=== PATIENT | female | born 1980 | race Caucasian/White ===

== ENCOUNTER 2016-10-26 11:40 | Emergency (ER) | payer OTHER ==
--- NOTE | 2016-10-26 12:07 | ERNOTE ---
Integumentary HPI - General Time Seen by Provider: 10/26/16 11:58 Source: patient Exam Limitations: no limitations - Immun/Allergies/Home Medications Immunizations: IMMUNIZATION HX Immunizations Up to Date Yes Allergies/Adverse Reactions: Allergies Allergy/AdvReac Type Severity Reaction Status Date / Time No Known Allergies Allergy Unverified 10/26/16 11:55 Home Medications: HOME MEDICATIONS Ciprofloxacin HCl [Cipro] 500 mg PO BID 10/26/16 [Last Taken Unknown] Cyclobenzaprine HCl [Flexeril] 10 mg PO TID PRN 10/26/16 [Last Taken Unknown] FLUoxetine HCL [Prozac] 10 mg PO DAILY 10/26/16 [Last Taken Unknown] QUEtiapine FUMARATE [Quetiapine Fumarate ER] 50 mg PO DAILY 10/26/16 [Last Taken Unknown] - History of Present Illness Narrative: This patient presents to the emergency room for swelling pain worsening redness and inability to move her right index finger. 6 days ago she was working in the garden and she poked herself with something she is not sure with what, 3 days ago patient seeks medical attention at [facility] where she received Ancef IV and was placed on Cipro. She is on Cipro 500 mg twice a day. The pain in her right index finger has gotten worse redness and swelling has gotten worse she is unable to flex it now when she is here for worsening right index finger pain. Review of Systems - Review of Systems Constitutional: Present: no symptoms reported EYE: Present: no symptoms reported ENT: Present: no symptoms reported Respiratory: Present: no symptoms reported Cardiology: Present: no symptoms reported Gastrointestinal/Abdominal: Present: no symptoms reported Genitourinary: Present: no symptoms reported Musculoskeletal: Present: See HPI Skin: Present: See HPI Neurological: Present: no symptoms reported - Patient's Past Medical History Patient History - Medical: No pertinent hx Patient History - Cardiac/Respiratory: No pertinent hx Patient History - Cancer: No Hx of Cancer Patient History - Surgical Procedures: Other Patient History - Other: None - Social History Smoking Status: Current every day smoker Have you smoked in the past 12 months: Yes - Immunizations Immunizations Up to Date: Yes Physical Exam - Physical Exam General Appearance: Present: wd/wn, alert, severe distress Head Exam: Present: normal inspection, no evidence of injury Respiratory: Present: no respiratory distress, normal breath sounds, no accessory muscle use, chest nontender, lungs clear Cardiovascular/Chest: Present: regular rate, rhythm, no murmur, normal peripheral pulses Extremity Exam: Present: other - right index finger is swollen and red and tense the redness extends proximally up the hand and the palmar and dorsal aspect. There is a small area that appears to be an area of pus under pressure on the volar aspect of the PIP joint. Patient is very tender in the region of the entire finger is swollen and red she is unable to flex it due to pain. ED Progress - Results and Orders Patient's Lab Results:: I have reviewed the patient's lab results. - Vital Signs Patient's Vital Signs:: I have reviewed the patient's vital signs. Vital Signs: Vital Signs 10/26/16 11:51 Temperature 36.7 C Pulse Rate 86 Respiratory 14 Rate Blood Pressure 114/70 O2 Sat by Pulse 98 Oximetry - X-Ray X-Ray #1 X-Ray: hand - Progress/Reassessment Chief Complaint: Cellulitis Plan - Plan Plan: This patient has a severe tenosynovitis of the right index finger. I contacted Juan R Kiran from orthopedic clinic and he presented to the emergency room evaluated the patient and suggested the patient be seen by hand specialist. Patient insisted that she wanted to go to [facility]. Contacted [facility] however they stated that or so took her own call. Contacted the orthopedic clinic however staff was not able to get me the number for the ortho presentation designer in a timely manner and after waiting on the phone 30 minutes, this examiner made a decision that it was in the patient's best interest to get her transferred to [facility]. After discussing this with the patient patient stated that she was going to sign out AGAINST MEDICAL ADVICE and have somebody drive her to [facility]. Patient was given Toradol 60 mg IM and Rocephin 1 g IM. Mr. Juan R Kiran was in the room and witness to everything that was being discussed. Patient was made aware of her emergency stay of possibly losing her right index finger she is aware of the dangers she made a decision to sign out AGAINST MEDICAL ADVICE regardless. Patient then changed her mind and wanted to go to [facility] however wanted to go with private vehicle.In the interim [facility] called us and informed us that the hand surgeon was on vacation and the only option is [facility]. I spoke to Dr. Velasquez at [facility] and Dr. Velasquez accepted pt to their facility. pt is to go via private vehicle and reliable jitney driver to [facility]. Pt insisted that she go via private vehicle and refused ambulance transfer. Departure Clinical Impression: Tenosynovitis of finger - Departure Disposition: [facility] Condition: Serious
[2016-10-26 12:31] LABS: Hematocrit 33.3 % (37.0-47.0); Hemoglobin 11.3 gm/dL (12.5-16.0); Mean Cell Volume 90.5 fl (78-100); Mean Corpuscular Hemoglobin 30.7 pg (27-31); Mean Corpuscular Hgb Conc 33.9 g/dl (32-36); Mean Platelet Volume 11.5 fl (6.0-9.5); Neutrophil # 5.9 K/mm3 (1.3-6.0); Neutrophil % 69.2 % (42-75.0); Platelet Count 193 K/mm3 (150-450); Red Blood Count 3.68 M/mm3 (4.2-5.4); Red Cell Distribution Width 12.4 % (11.5-14.0); White Blood Count 8.5 K/mm3 (4.0-10.5)
[2016-10-26 12:58] LABS: Albumin * 3.2 gm/dl (3.4-5.0); BUN/Creatinine Ratio 30.3 (9.0-21.6); Bilirubin, Total 0.4 mg/dL (0.0-1.1); CRP 5.2 mg/dL (0.0-0.9); Ca. Corrected For Albumin 9.4 mg/dL (8.4-10.2); Calcium * 9.1 mg/dL (7.9-10.9); Carbon Dioxide 23.3 mmol/L (24-32.6); Potassium 3.3 mmol/L (3.4-4.6); Total Protein 6.9 gm/dL (6.2-8.2)
[2016-10-26] MEDS ORDERED: KETOROLAC TROMETHAMINE 60 MG/2 ML VIAL IM ONE ×2 (13:05→13:07)
--- NOTE | 2016-10-26 13:18 | CONS ---
HPI - General Date of Service: 10/26/16 Narrative: Pt is a 36 y/o female who presents with right index finger pain and swelling. Pt states this has been there for approximately 6 days, it all began after she was working in a garden and had some sort of puncture wound. Pt notes that following the wound it began becoming more red and swollen with some pus coming out of wound. Pt was seen at [facility] and given a dose of ancef and sent home on cipro. Pt has continued taking antibiotics, with worsening of condition. Pt presents today to [facility] ER with pain continuing to increase, with swelling of the entire digit and decreased function. Source: patient Exam Limitations: no limitations - History of Present Illness Allergies/Adverse Reactions: Allergies No Known Allergies Allergy (Unverified 10/26/16 11:55) Home Medications: Home Medications Medication Instructions Recorded Last Taken Ciprofloxacin HCl [Cipro] 500 mg PO BID 10/26/16 Unknown Cyclobenzaprine HCl [Flexeril] 10 mg PO TID PRN 10/26/16 Unknown FLUoxetine HCL [Prozac] 10 mg PO DAILY 10/26/16 Unknown QUEtiapine FUMARATE [Quetiapine 50 mg PO DAILY 10/26/16 Unknown Fumarate ER] - Patient's Past Medical History Patient History - Medical: No pertinent hx Patient History - Cardiac/Respiratory: No pertinent hx Patient History - Cancer: No Hx of Cancer Patient History - Surgical Procedures: Other Patient History - Other: None - Social History Smoking Status: Current every day smoker Have you smoked in the past 12 months: Yes - Immunizations Immunizations Up to Date: Yes Physical Examination - Exam Vital Signs: Vital Signs - Last Taken Temp 36.7 C 10/26/16 11:51 Pulse 86 10/26/16 11:51 Resp 14 10/26/16 11:51 BP 114/70 10/26/16 11:51 Pulse Ox 98 10/26/16 11:51 O2 Oxygen Delivery Method Room Air Constitutional: Present: Alert, Oriented x3, Cooperative, No distress Respiratory: Present: no respiratory distress Extremity: Present: other - RUE hand has moderate edema, erythema circumfrentially around the index digit, with wound on volar surface, evidence of purulent discharge under skin, positive kanavel signs Appearance: Present: appropriate appearance Eye contact: Present: cooperative, good eye contact Thoughts: Present: normal thought pattern - Results and Findings: Narrative: Discussed with patient concern for possible tenosynovitis of right index finger , due to positive Kanavel signs on exam, and tx with antibiotics without improvement of condition. Educated patient on emergent state and concern for impairment of function if not treated emergently, discussed that further evaluation by an orthopedic hand specialist would be most beneficial in treating the infection in current condition. Pt agreed and would like to go to [facility] in [place]. Multiple efforts made to contact an accepting physician at [facility], with no success. Discussed with patient the need for emergent f/u and recommended the [facility]. Pt would like to sign out AMA to attain treatment at [facility]. Pt explained she fully understood the risk of not being directly transported to a facility with an accepting physician. Pt still would like to leave AMA. Lab/Microbiology results last 24 hrs: Abnormal/Pending Laboratory Last 24 HRS 10/26/16 10/26/16 12:01 12:01 RBC 3.68 L Hgb 11.3 L Hct 33.3 L MPV 11.5 H Immature Gran % (Auto) 1.50 H Immature Gran # (Auto) 0.13 H Lymphocytes % 16.0 L Monocytes % 11.1 H Lymphocytes # 1.4 L Potassium 3.3 L Carbon Dioxide 23.3 L Anion Gap 16.0 H BUN 30 H BUN/Creatinine Ratio 30.3 H AST 95 H ALT 281 H C-Reactive Prot, Quant 5.2 H Albumin 3.2 L - Assessments/Findings (1) Tenosynovitis of finger Problem: Acute
[2016-10-26 14:10] VITALS: BP 122/62
== END 2016-10-26 14:07 | disposition short-term general hospital (02) ==
LOC: ER 11:40
DX: M65.841 Other synovitis and tenosynovitis, right hand (principal); F17.200 Nicotine dependence, unspecified, uncomplicated

== ENCOUNTER 2020-06-07 02:29 | Inpatient (IN) ==
--- NOTE | 2020-06-07 03:20 | ERNOTE ---
Medical Problem HPI - Narrative Date of Service: 06/07/20 - General Chief Complaint: General Assessment Time Seen by Provider: 06/07/20 03:04 - Immun/Allergies/Home Medications Immunizations: IMMUNIZATION HX Immunizations Up to Date Yes History of Influenza Vaccine No Allergies/Adverse Reactions: Allergies No Known Allergies Allergy (Unverified 06/07/20 02:42) Home Medications: HOME MEDICATIONS FLUoxetine HCL [Prozac] 10 mg PO DAILY 10/26/16 [Last Taken Unknown] Clonazepam 0.5 mg PO BID PRN 06/07/20 [Last Taken Unknown] Temazepam 15 mg PO HS 06/07/20 [Last Taken Unknown] - History of Present History Narrative: 39-year-old female history of drug abuse came in today because of bilateral leg swelling up to the thighs she has no skin color changes denies chest pain or shortness of breath denies any pains in the legs but states over the past 1 day she has been having the swelling so she told her mother about and told her to come in and get checked out. Patient admits to eating fast food solely as her nutrition source and she does have some psychiatric history as well she denies being up on her feet and although she states she has swelling she has 2 rings that she feels have not gotten more tight. Review of Systems - Review of Systems Constitutional: Present: See HPI Cardiology: Present: edema All Other Systems: All systems neg except as marked Medical History (Last Reviewed 06/07/20 @ 03:18 by Jesus Turcios MD) Anxiety Depression Infection of finger right index PTSD (post-traumatic stress disorder) Surgical History: Surgical History (Last Reviewed 06/07/20 @ 03:18 by Jesus Turcios MD) History of ankle surgery x2 Family History: Family History (Last Reviewed 06/07/20 @ 03:18 by Jesus Turcios MD) Other No pertinent family history Social History: (Last Reviewed 06/07/20 @ 03:18 by Jesus Turcios MD) Social History: Marital status: Single household members: family current occupational status: unemployed Highest level of school completed/degree received: some college, no degree Service: No Tobacco: Smoking Status: Current every day smoker Smoking cigarettes per day: 10 Alcohol: alcohol intake: never Substance Use: substance use type: marijuana Physical Exam - Physical Exam General Appearance: Present: wd/wn, alert, no apparent distress Head Exam: Present: normal inspection, no evidence of injury Eye Exam: Normal inspection: bilateral, PERRL: bilateral, EOMI: bilateral Ears, Nose, Throat: Present: normal ENT inspection Neck: Present: normal inspection, nontender, supple, full range of motion Respiratory: Present: no respiratory distress, normal breath sounds, no accessory muscle use, chest nontender Cardiovascular/Chest: Present: regular rate, rhythm, tachycardia Gastrointestinal/Abdominal: Present: nontender, nondistended, soft, no organomegaly Extremity Exam: Present: non-tender, normal range of motion, pedal edema Neurological Exam: Present: alert, oriented, normal mood/affect Progress - Date and Time Seen: Date and Time: 06/07/20 05:29 Discussed with the patient the findings of her labs which is elevated BNP greater than 7000 patient has not seen a physician in years but does have a remote history of IVDU poor diet. I discussed this also with admitting doctor for patient with new onset CHF rule out cardiomyopathy evaluation is required patient will be placed in the hospital under observation for evaluation of new onset CHF versus cardiomyopathy. This was discussed with Dr. Ibrahim who accepted patient service - Results and Orders Patient's Lab Results:: I have reviewed the patient's lab results. - Vital Signs Patient's Vital Signs:: I have reviewed the patient's vital signs. Vital Signs: Vital Signs 06/07/20 02:36 Temperature 37.1 C Pulse Rate 129 H Respiratory Rate 16 Blood Pressure 157/105 H O2 Sat by Pulse Oximetry 97 - X-Ray X-Ray #1 X-Ray: chest Interpretation: Interp. by me, Reviewed by me - Enlarged heart mild cephalization no pleural effusions - Progress/Reassessment Chief Complaint: General Assessment Departure Clinical Impression: Congestive heart failure Qualifiers: Heart failure type: unspecified Heart failure chronicity: unspecified Qualified Code(s): I50.9 - Heart failure, unspecified - Departure Disposition: Short Term Hospital Inpatient Condition: Good
[2020-06-07 03:33] LABS: Hematocrit 35.3 % (37.0-47.0); Hemoglobin 11.9 gm/dL (12.5-16.0); Mean Cell Volume 88.7 fl (78-100); Mean Corpuscular Hemoglobin 29.9 pg (27-31); Mean Corpuscular Hgb Conc 33.7 g/dl (32-36); Neutrophil # 8.2 K/mm3 (1.3-6.0); Neutrophil % 70.9 % (42-75.0); Platelet Count 229 K/mm3 (150-450); Red Blood Count 3.98 M/mm3 (4.2-5.4); Red Cell Distribution Width 12.5 % (11.5-14.0); White Blood Count 11.6 K/mm3 (4.0-10.5)
[2020-06-07 03:43] LABS: Prothrombin Time (Patient) 10.8 Seconds (9.1-10.7)
[2020-06-07 03:44] LABS: INR 1.04 INR (0.92-1.08)
[2020-06-07 03:53] LABS: Anion Gap 16.8 mmol/L (6.8-13.8); BUN/Creatinine Ratio 28.4 (9.0-21.6); Bilirubin, Total 0.4 mg/dL (0.0-1.1); Ca. Corrected For Albumin 8.8 mg/dL (8.4-10.2); Calcium * 8.3 mg/dL (7.9-10.9); Carbon Dioxide 21.8 mmol/L (24-32.6); Potassium 3.6 mmol/L (3.4-4.6); Total Protein 5.5 gm/dL (6.2-8.2)
[2020-06-07] MEDS ORDERED: FUROSEMIDE 10 MG/ML VIAL IV ONE (04:39)
[2020-06-07 06:05] LABS: Urine Bilirubin Negative (NEGATIVE); Urine Blood Negative /ul (NEGATIVE); Urine Ketone Negative (NEGATIVE); Urine Nitrite Negative (NEGATIVE); Urine Protein Negative (NEGATIVE); Urine Specific Gravity 1.015 SP.GR. (1.005-1.010); Urine Urobilinogen Normal (NORMAL); Urine pH 6.5 pH (5.0-7.0)
[2020-06-07 06:10] LABS: Urine Appearance Clear (CLEAR); Urine Bacteria None Seen; Urine Color Colorless; Urine RBC None Seen /hpf (0-5); Urine WBC None Seen /hpf (0-5)
[2020-06-07] MEDS ORDERED: clonazePAM 0.5 MG TABLET PO PRN (09:10)
--- NOTE | 2020-06-07 09:10 | HP ---
Chief Complaint - Chief Complaint Date of Service: 06/07/20 Time of Service: 08:56 Chief Complaint: Shortness of breath History of Present Illness: Amy Jackson is a 39-year-old white female with no significant past medical history in the past except for anxiety, depression, and posttraumatic stress disorder who was admitted on 06/07/2020 for increasing shortness of breath. 1 week prior to admission the patient started having some shortness of breath associated at times with cough but no fever or chills. 2 days prior to admission the patient started having increased swelling of her legs and arms as well as orthopnea. She went to our emergency room where she was found to have an elevated BNP of 7230, WBC of 11.6, hemoglobin of 11.9. Her EKG showed sinus tachycardia with right axis deviation. Her chest x-ray showed pulmonary conges tion and cardiomegaly. She said that when she was in [place] she mainly relied on fast food as it was cheaper and faster and her cooking was not tasteful. She used to do IV drug abuse in the past but then joined the methadone clinic and was good for 8 years but lately has been occasionally doing meth and marijuana. She was following up with psych doctor and a methadone clinic in [place] and they are the ones filling her medications. She was admitted for further evaluation and treatment. Medical History (Last Reviewed 06/07/20 @ 07:59 by Marielos Cameron RN) Anxiety Depression Infection of finger right index PTSD (post-traumatic stress disorder) Surgical History: Surgical History (Last Reviewed 06/07/20 @ 07:59 by Marielos Cameron RN) History of ankle surgery x2 Family History: Family History (Last Reviewed 06/07/20 @ 07:59 by Marielos Cameron RN) Other No pertinent family history Social History: (Last Reviewed 06/07/20 @ 07:59 by Marielos Cameron RN) Social History: Marital status: Single household members: family current occupational status: unemployed Highest level of school completed/degree received: some college, no degree Service: No Tobacco: Smoking Status: Current every day smoker Smoking cigarettes per day: 10 Alcohol: alcohol intake: never Substance Use: substance use type: marijuana Review Of Systems (GEN) - Review of Systems Generalized/Overall Review: Present: Weight gain. Absent: Weakness, Chills, Fever EENTM: Absent: Blurred Vision, Double Vision Respiratory: Present: Cough, Shortness of Breath, Orthopnea. Absent: Wheezing Cardiac: Present: Edema. Absent: Chest Pain, Palpitations Abdominal: Absent: Nausea, Vomiting, Abdominal Pain Genitourinary: Absent: Urgency, Frequency Musculoskeletal: Present: Joint Pain Neurological: Absent: Headache Skin: Absent: Lesions, Rash Misc: All systems neg except as marked Immunizations: IMMUNIZATION HX Immunizations Up to Date Yes History of Influenza Vaccine No Allergies/Adverse Reactions: Allergies Allergy/AdvReac Type Severity Reaction Status Date / Time No Known Allergies Allergy Unverified 06/07/20 02:42 Home Medications: HOME MEDICATIONS FLUoxetine HCL [Prozac] 10 mg PO DAILY 10/26/16 [Last Taken Unknown] Clonazepam 0.5 mg PO BID PRN 06/07/20 [Last Taken Unknown] Temazepam 15 mg PO HS 06/07/20 [Last Taken Unknown] Exam - Exam Vital Signs: Vital Signs - Last Taken Temp 36.7 C 06/07/20 07:37 Pulse 110 H 06/07/20 07:37 Resp 16 06/07/20 07:37 BP 116/64 06/07/20 07:37 Pulse Ox 98 06/07/20 07:37 Constitutional: Present: Alert, Oriented x3, Cooperative ENT Exam: Present: hearing grossly normal Eye Exam: bilateral eye: normal inspection, PERRL, EOMI Neck: Present: supple. Absent: lymphadenopathy (R), lymphadenopathy (L) Respiratory: Present: decreased breath sounds, rales, No wheezing Cardiovascular/Chest: Present: regular rate, rhythm, no murmur, tachycardia Abdomen: Present: Normal bowel sounds, soft, nontender, nondistended Extremity: Present: no calf tenderness, lower extremity edema Diagnostic Studies: Abnormal Lab Results 06/07/20 06/07/20 06/07/20 Range/Units 03:26 03:26 03:26 WBC 11.6 H (4.0-10.5) K/mm3 RBC 3.98 L (4.2-5.4) M/mm3 Hgb 11.9 L (12.5-16.0) gm/dL Hct 35.3 L (37.0-47.0) % Immature Gran # (Auto) 0.05 H (0.000-0.0310) K/mm3 Neutrophils # 8.2 H (1.3-6.0) K/mm3 PT 10.8 H (9.1-10.7) Seconds Sodium 143 H (132-142) mmol/L Plasma Sodium 143 H (130-142) mmol/L Chloride 108 H (97-106) mmol/L Carbon Dioxide 21.8 L (24-32.6) mmol/L Anion Gap 16.8 H (6.8-13.8) mmol/L BUN/Creatinine Ratio 28.4 H (9.0-21.6) B-Natriuretic Peptide 7230 H (5-150) pg/mL Total Protein 5.5 L (6.2-8.2) gm/dL Albumin 3.0 L (3.4-5.0) gm/dl Laboratory Results WBC 11.6 K/mm3 (4.0-10.5) H 06/07/20 03:26 RBC 3.98 M/mm3 (4.2-5.4) L 06/07/20 03:26 Hgb 11.9 gm/dL (12.5-16.0) L 06/07/20 03:26 Hct 35.3 % (37.0-47.0) L 06/07/20 03:26 MCV 88.7 fl (78-100) 06/07/20 03:26 MCH 29.9 pg (27-31) 06/07/20 03:26 MCHC 33.7 g/dl (32-36) 06/07/20 03:26 RDW 12.5 % (11.5-14.0) 06/07/20 03:26 Plt Count 229 K/mm3 (150-450) 06/07/20 03:26 MPV 11.0 fl (8-12.5) 06/07/20 03:26 Immature Gran % (Auto) 0.40 % (0.001-0.429) 06/07/20 03:26 Immature Gran # (Auto) 0.05 K/mm3 (0.000-0.0310) H 06/07/20 03:26 Neutrophils % 70.9 % (42-75.0) 06/07/20 03:26 Lymphocytes % 20.3 % (20-51) 06/07/20 03:26 Monocytes % 6.6 % (0.0-9) 06/07/20 03:26 Eosinophils % 1.0 % (0.0-3.0) 06/07/20 03: Basophils % 0.8 % (0.0-1.0) 06/07/20 03:26 Nucleated RBC % 0.0 k/mm3 (0-1) 06/07/20 03:26 Neutrophils # 8.2 K/mm3 (1.3-6.0) H 06/07/20 03:26 Lymphocytes # 2.36 k/mm3 (1.5-3.5) 06/07/20 03:26 Monocytes # 0.8 k/mm3 (0.0-1.0) 06/07/20 03:26 Eosinophils # 0.1 k/mm3 (0.0-0.7) 06/07/20 03:26 Absolute Basophils 0.1 k/mm3 (0.0-0.1) 06/07/20 03:26 PT 10.8 Seconds (9.1-10.7) H 06/07/20 03:26 INR (Anticoag Therapy) 1.04 INR (0.92-1.08) 06/07/20 03:26 D-Dimer 0.42 ugFEU/mL (0.19-0.49) 06/07/20 03:26 Sodium 143 mmol/L (132-142) H 06/07/20 03:26 Plasma Sodium 143 mmol/L (130-142) H 06/07/20 03:26 Potassium 3.6 mmol/L (3.4-4.6) 06/07/20 03:26 Chloride 108 mmol/L (97-106) H 06/07/20 03:26 Carbon Dioxide 21.8 mmol/L (24-32.6) L 06/07/20 03:26 Anion Gap 16.8 mmol/L (6.8-13.8) H 06/07/20 03:26 BUN 23 mg/dL (3-23) 06/07/20 03:26 Creatinine 0.81 mg/dL (0.4-1.4) 06/07/20 03:26 Est GFR (Non-Af Amer) 83 mL/min (60-130) D 06/07/20 03:26 BUN/Creatinine Ratio 28.4 (9.0-21.6) H 06/07/20 03:26 Random Glucose 96 mg/dL (70-110) 06/07/20 03:26 Calcium 8.3 mg/dL (7.9-10.9) 06/07/20 03:26 Calcium Adj for Albumin 8.8 mg/dL (8.4-10.2) 06/07/20 03:26 Total Bilirubin 0.4 mg/dL (0.0-1.1) 06/07/20 03:26 AST 21 U/L (0-48) 06/07/20 03:26 ALT 65 U/L (19-67) 06/07/20 03:26 Alkaline Phosphatase 76 U/L (50-170) 06/07/20 03:26 Troponin I 0.033 ng/mL (0.00-0.10) 06/07/20 03:26 B-Natriuretic Peptide 7230 pg/mL (5-150) H 06/07/20 03:26 Total Protein 5.5 gm/dL (6.2-8.2) L 06/07/20 03:26 Albumin 3.0 gm/dl (3.4-5.0) L 06/07/20 03:26 Urine Color Colorless 06/07/20 05:45 Urine Appearance Clear (CLEAR) 06/07/20 05:45 Urine pH 6.5 pH (5.0-7.0) 06/07/20 05:45 Ur Specific [place] 1.015 SP.GR. (1.005-1.010) 06/07/20 05:45 Urine Protein Negative mg/dL (NEGATIVE) 06/07/20 05:45 Urine Glucose (UA) Negative mg/dL (NEGATIVE) 06/07/20 05:45 Urine Ketones Negative mg/dL (NEGATIVE) 06/07/20 05:45 Urine Blood Negative /ul (NEGATIVE) 06/07/20 05:45 Urine Nitrate Negative (NEGATIVE) 06/07/20 05:45 Urine Bilirubin Negative mg/dl (NEGATIVE) 06/07/20 05:45 Urine Urobilinogen Normal EU/dl (NORMAL) 06/07/20 05:45 Ur Leukocyte Esterase Negative /ul (NEGATIVE) 06/07/20 05:45 Urine RBC None seen /hpf (0-5) 06/07/20 05:45 Urine WBC None seen /hpf (0-5) 06/07/20 05:45 Ur Epithelial Cells None seen /hpf (0-5) 06/07/20 05:45 Urine Bacteria None seen (NONE) 06/07/20 05:45 Urine Culture Comments No culture indicated 06/07/20 05:45 Urine HCG, Qual Negative (NEGATIVE) 06/07/20 05:45 SARS-CoV-2 (PCR) Not detected (NotDetected) 06/07/20 05:45 Assessment/Plan - Narrative Narrative: Amy Tejeda is a 39-year-old white female who was admitted for increasing shortness of breath, edema, orthopnea and elevated BNP with pulmonary congestion. She is new onset acute congestive heart failure and received 1 dose of IV Lasix in the emergency room. She says she is feeling better and he has noticed some decrease in the size of her legs. We will continue her with her IV Lasix and start her on an GALINDO inhibitor. We will get the urine drug screen and add TSH and procalcitonin to her labs. We will add a low dose beta-trinity for her tachycardia. We will get an echocardiogram in the morning. Her enlarged cardiac [place] could due undiagnosed hypertension or pericardial effusion from a recent viral insult, or tachy rate related cardiomopathy. - Assessment/Plan (1) Congestive heart failure Problem: Acute Qualifiers: Heart failure type: unspecified Heart failure chronicity: unspecified Qualified Code(s): I50.9 - Heart failure, unspecified (2) Anxiety and depression Problem: Chronic (3) Posttraumatic stress disorder Problem: Chronic (4) Substance abuse Problem: Suspected
[2020-06-07 09:52] LABS: Troponin I 0.035 ng/mL (0.00-0.10)
[2020-06-07] MEDS: FUROSEMIDE 10 MG/ML VIAL IV SCH ×2 (10:08→21:53)
[2020-06-07] MEDS: LISINOPRIL 5 MG TABLET PO SCH (10:08)
[2020-06-07] MEDS: POTASSIUM CHLORIDE 10 MEQ TABLET.SA PO SCH ×2 (10:08→17:30)
[2020-06-07 10:18] LABS: Cocaine Ur Negative (NEGATIVE); Urine Barbiturate Negative (NEGATIVE); Urine Benzodiazepines Negative (NEGATIVE); Urine Opiates Negative (NEGATIVE); Urine PCP Negative (NEGATIVE); Urine THC Negative (NEGATIVE)
[2020-06-07] MEDS: METOPROLOL TARTRATE 25 MG TABLET PO SCH ×2 (10:18→21:51)
[2020-06-07] MEDS ORDERED: ACETAMINOPHEN 325 MG TABLET PO PRN (11:34)
[2020-06-07] MEDS ORDERED: ENOXAPARIN SODIUM 40 MG/0.4 ML SYRG SC SCH (14:15)
[2020-06-07] MEDS ORDERED: TEMAZEPAM 15 MG CAPSULE PO SCH (21:00)
[2020-06-07] MEDS ORDERED: NICOTINE 14 MG PATC TD SCH (21:45)
[2020-06-07] MEDS ORDERED: NICOTINE 7 MG PATC TD ONE (21:47)
[2020-06-08 06:18] LABS: Hematocrit 41.5 % (37.0-47.0); Hemoglobin 13.5 gm/dL (12.5-16.0); Mean Cell Volume 90.4 fl (78-100); Mean Corpuscular Hemoglobin 29.4 pg (27-31); Mean Corpuscular Hgb Conc 32.5 g/dl (32-36); Mean Platelet Volume 11.2 fl (8-12.5); Neutrophil # 4.7 K/mm3 (1.3-6.0); Neutrophil % 63.5 % (42-75.0); Platelet Count 219 K/mm3 (150-450); Red Blood Count 4.59 M/mm3 (4.2-5.4); Red Cell Distribution Width 12.6 % (11.5-14.0); White Blood Count 7.4 K/mm3 (4.0-10.5)
[2020-06-08 06:28] LABS: Anion Gap 11.2 mmol/L (6.8-13.8); Calcium * 8.1 mg/dL (7.9-10.9); Carbon Dioxide 28.3 mmol/L (24-32.6); Estimated Creat Clear 50.7; Potassium 3.5 mmol/L (3.4-4.6)
[2020-06-08 08:14] LABS: Chol/HDL Risk Ratio 4.1 mg/dL (3.3-4.4)
[2020-06-08] MEDS ORDERED: FLUoxetine HCL 10 MG CAPSULE PO SCH (09:00)
--- NOTE | 2020-06-08 09:16 | PN ---
Subjective - Date and Time Seen Date: 06/08/20 Time: 09:13 Subjective Narrative: Amy is feeling better and has lost about 10 pounds since admission with diuresis. Her edema is significantly reduced. She does complain that she gets anxious when she exerts herself. Objective - Review of Systems Generalized/Overall Review: Denies: Weakness, Chills, Fever EENTM: Denies: Blurred Vision, Double Vision Respiratory: Reports: Shortness of Breath. Denies: Cough, Orthopnea, Wheezing Cardiac: Reports: Edema, Palpitations. Denies: Chest Pain Abdominal: Denies: Nausea, Vomiting, Abdominal Pain Genitourinary Symptoms: Denies: Urgency, Frequency Musculoskeletal Complaints: Denies: Joint Pain, Back Pain Neurological: Denies: Headache Skin: Denies: Lesions, Rash Misc: All systems neg except as marked - Vitals Vitals: Last Vital Signs Temp 37 C 06/08/20 06:17 Pulse 86 06/08/20 07:49 Resp 18 06/08/20 06:17 BP 107/75 06/08/20 06:17 Pulse Ox 96 06/08/20 06:17 - Abnormal Lab Findings Abnormal Lab Findings: Abnormal Lab Results 06/07/20 06/07/20 06/08/20 Range/Units 09:26 09:58 06:12 Sodium 145 H (132-142) mmol/L Plasma Sodium 145 H (130-142) mmol/L Chloride 109 H (97-106) mmol/L HDL Cholesterol (40-60) mg/dL Procalcitonin Less than 0.05 L (0.05-0.50) ng/mL Urine Amphetamine Positive H (NEGATIVE) 06/08/20 Range/Units 06:12 Sodium (132-142) mmol/L Plasma Sodium (130-142) mmol/L Chloride (97-106) mmol/L HDL Cholesterol 35 L (40-60) mg/dL Procalcitonin (0.05-0.50) ng/mL Urine Amphetamine (NEGATIVE) - Exam Constitutional: Present: Alert, Oriented x3, Cooperative ENT Exam: Present: hearing grossly normal Neck: Present: supple. Absent: lymphadenopathy (R), lymphadenopathy (L) Respiratory: Present: decreased breath sounds, No rales, No wheezing Cardiovascular/Chest: Present: regular rate, rhythm, no JVD, no murmur Abdomen: Present: Normal bowel sounds, soft, nontender, nondistended Extremity: Present: no calf tenderness, lower extremity edema - Trace Assessment/Plan Plan Narrative: Amy was admitted for acute congestive heart failure, new onset She was continued on IV diuresis and low-dose GALINDO inhibitor and beta-trinity was started as her heart rate was in the 1 teens to 130s. She has lost about 10 pounds. She is going to undergo echocardiogram today. She may need to have a nuclear pharmacologic stress test as an outpatient if this is ischemic. It could be due to cardiomyopathy from her drug abuse. Her urine drug screen was positive for methamphetamine. We will decrease her IV Lasix today. - Problems/Diagnosis (1) Congestive heart failure Problem: Acute Qualifiers: Heart failure type: unspecified Heart failure chronicity: unspecified Qualified Code(s): I50.9 - Heart failure, unspecified (2) Anxiety and depression Problem: Chronic (3) Posttraumatic stress disorder Problem: Chronic (4) Substance abuse Problem: Chronic Narrative: positive for methamphetamine
[2020-06-08] MEDS: FUROSEMIDE 10 MG/ML VIAL IV SCH (09:18)
[2020-06-08] MEDS: POTASSIUM CHLORIDE 10 MEQ TABLET.SA PO SCH (09:22)
[2020-06-08] MEDS: METOPROLOL TARTRATE 25 MG TABLET PO SCH ×2 (09:22→09:26)
[2020-06-08] MEDS: LISINOPRIL 5 MG TABLET PO SCH ×2 (09:22→09:25)
[2020-06-08 11:30] VITALS: BP 97/70
--- NOTE | 2020-06-09 08:53 | DS ---
(1) Congestive heart failure Problem: Acute Qualifiers: Heart failure type: unspecified Heart failure chronicity: unspecified Qualified Code(s): I50.9 - Heart failure, unspecified (2) Anxiety and depression Problem: Chronic (3) Posttraumatic stress disorder Problem: Chronic (4) Substance abuse Problem: Chronic Date of Discharge:: 06/08/20 Hospital Course: Amy Jackson is a 39-year-old white female with no significant past medical history in the past except for anxiety, depression, and posttraumatic stress disorder who was admitted on 06/07/2020 for increasing shortness of breath. 1 week prior to admission the patient started having some shortness of breath associated at times with cough but no fever or chills. 2 days prior to admission the patient started having increased swelling of her legs and arms as well as orthopnea. She went to our emergency room where she was found to have an elevated BNP of 7230, WBC of 11.6, hemoglobin of 11.9. Her EKG showed sinus tachycardia with right axis deviation. Her chest x-ray showed pulmonary congestion and cardiomegaly. She said that when she was in [place] she mainly relied on fast food as it was cheaper and faster and her cooking was not tasteful. She used to do IV drug abuse in the past but then joined the [facility] and was good for 8 years but lately has been occasionally doing meth and marijuana. She was following up with psych doctor and a methadone clinic in [place] and they are the ones filling her medications. She was admitted for further evaluation and treatment. She was diuresed with IV lasix and started on low dose GALINDO I and low dose BBlocker beciase of her tachycardia. We ordered for an Echo butshe became anxious and went AMA- please see nurses' note - "Increasingly anxious following lunch. Ripped telemetry off. Doesn't understand why she has to wait all day for echo. Reinforced that she will be worked in around outpatient schedule. Wants to leave, feels like she's in longterm. Discussed importance of staying for echo, getting follow up scheduled and discharge prescriptions sent. Patient persistent on leaving, states she will make her own follow up and establish primary care, watch her diet and manage her health. IV site dc'd, cannula intact. AMA paper signed and placed on chart. Dr. Linton notified per [place], Case Management. " Procedures Performed: none Results and Findings: Lab Pending Results 06/07/20 03:26: WBC 11.6 H, RBC 3.98 L, Hgb 11.9 L, Hct 35.3 L, MCV 88.7, MCH 29.9, MCHC 33.7, RDW 12.5, Plt Count 229, MPV 11.0, Immature Gran % (Auto) 0.40, Immature Gran # (Auto) 0.05 H, Neutrophils % 70.9, Lymphocytes % 20.3, Monocytes % 6.6, Eosinophils % 1.0, Basophils % 0.8, Nucleated RBC % 0.0, Neutrophils # 8.2 H, Lymphocytes # 2.36, Monocytes # 0.8, Eosinophils # 0.1, Absolute Basop hils 0.1 06/07/20 03:26: Sodium 143 H, Plasma Sodium 143 H, Potassium 3.6, Chloride 108 H, Carbon Dioxide 21.8 L, Anion Gap 16.8 H, BUN 23, Creatinine 0.81, Est GFR (Non-Af Amer) 83 D, BUN/Creatinine Ratio 28.4 H, Random Glucose 96, Calcium 8.3, Calcium Adj for Albumin 8.8, Total Bilirubin 0.4, AST 21, ALT 65, Alkaline Phosphatase 76, B-Natriuretic Peptide 7230 H, Total Protein 5.5 L, Albumin 3.0 L 06/07/20 03:26: D-Dimer 0.42 06/07/20 03:26: PT 10.8 H, INR (Anticoag Therapy) 1.04 06/07/20 03:26: Troponin I 0.033 06/07/20 05:45: Urine HCG, Qual Negative 06/07/20 05:45: SARS-CoV-2 (PCR) Not detected 06/07/20 05:45: Urine Color Colorless, Urine Appearance Clear, Urine pH 6.5, Ur Specific [place] 1.015, Urine Protein Negative, Urine Glucose (UA) Negative, Urine Ketones Negative, Urine Blood Negative, Urine Nitrate Negative, Urine Bilirubin Negative, Urine Urobilinogen Normal, Ur Leukocyte Esterase Negative, Urine RBC None seen, Urine WBC None seen, Ur Epithelial Cells None seen, Urine Bacteria None seen, Urine Culture Comments No culture indicated 06/07/20 09:26: Troponin I 0.035, TSH (Reflex) 0.980 06/07/20 09:26: Procalcitonin Less than 0.05 L 06/07/20 09:58: Urine Opiates Screen Negative, Barbiturate Screen Negative, Ur Phencyclidine Scrn Negative, Urine Amphetamine Positive H, U Benzodiazepines Scrn Negative, Urine Cocaine Screen Negative, Urine Marijuana (THC) Negative 06/08/20 06:12: WBC 7.4 D, RBC 4.59, Hgb 13.5, Hct 41.5, MCV 90.4, MCH 29.4, MCHC 32.5, RDW 12.6, Plt Count 219, MPV 11.2, Immature Gran % (Auto) 0.40, Immature Gran # (Auto) 0.03, Neutrophils % 63.5, Lymphocytes % 26.2, Monocytes % 6.9, Eosinophils % 2.2, Basophils % 0.8, Nucleated RBC % 0.0, Neutrophils # 4.7, Lymphocytes # 1.95, Monocytes # 0.5, Eosinophils # 0.2, Absolute Basophils 0.1 06/08/20 06:12: Sodium 145 H, Plasma Sodium 145 H, Potassium 3.5, Chloride 109 H, Carbon Dioxide 28.3, Anion Gap 11.2, BUN 22, Creatinine 1.05, Est GFR (Non-Af Amer) 62 D, BUN/Creatinine Ratio 21.0, Random Glucose 93, Calcium 8.1 06/08/20 06:12: Triglycerides 66, Cholesterol 146, LDL Cholesterol 98, VLDL Cholesterol 13, HDL Cholesterol 35 L, Cholesterol/HDL Ratio 4.1 Discharge Location: Home Disposition: Against medical advice Condition: Fair Discharge Activity: Activity as tolerated Discharge Diet: Low salt Referrals: Tommy Linton MD [Staff Physician] - Complete Home Medications List: Complete Home Medication List: FLUoxetine HCL [Prozac] 10 mg PO DAILY 10/26/16 Clonazepam 0.5 mg PO BID PRN 06/07/20 Temazepam 15 mg PO HS 06/07/20 Forms: Patient Portal Registration
[2020-06-09] MEDS ORDERED: FUROSEMIDE 10 MG/ML VIAL IV SCH (09:00)
== END 2020-06-08 13:25 | disposition left against medical advice (07) | DRG 293 ==
LOC: ER 02:29 → MS 06:04
PROVIDERS: ADMIT Internal Medicine; ATTEND Internal Medicine